=== PATIENT | female | born 1995 | race Two or more races ===

== ENCOUNTER 2019-04-04 16:12 | Emergency (ER) | payer OTHER ==
[~2019-04-04] VITALS: Ht 160 cm; Wt 62.6 kg
[2019-04-04] MEDS ORDERED: SODIUM CHLORIDE 0.9% 500 ML IVB ONE (17:15)
[2019-04-04] MEDS ORDERED: PANTOPRAZOLE 40 MG/10 ML VIAL INJ IV STA (17:15)
[2019-04-04] MEDS ORDERED: ONDANSETRON HCL 4 MG/2 ML VIAL IV ONE (17:15)
[2019-04-04] MEDS ORDERED: MORPHINE SULFATE 4 MG/ML SYR/VIAL IV ONE (17:15)
[2019-04-04 17:21] VITALS: BP 138/87
[2019-04-04 17:35] LABS: Urine Bacteria FEW /hpf (None Seen); Urine Blood 2+ /uL (Negative); Urine Mucus FEW (None Seen); Urine Specific Gravity 1.022 (1.001-1.035); Urine WBC 5 /hpf (0 - 5)
== END 2019-04-04 20:00 | disposition home or self-care (01) ==
LOC: ER 16:12
DX: N39.0 Urinary tract infection, site not specified (principal)
CPT/HCPCS: 76705; 81001